=== PATIENT | female | born 1970 | race African-American/Black ===

== ENCOUNTER 2024-02-15 05:56 | Inpatient (IN) | payer OTHER ==
[2024-02-12 13:04] VITALS: BMI 33.8
[2024-02-15] MEDS ORDERED: Ondansetron PF 4 MG/2 ML Vial IVP PRN (06:35)
[2024-02-15] MEDS ORDERED: Promethazine 25 MG TAB PO PRN (06:35)
[2024-02-15] MEDS ORDERED: fentaNYL 50 mcg/mL 1 mL Vial SLOW IVP PRN (06:35)
[2024-02-15] MEDS ORDERED: Acetaminophen 325 MG TAB PO PRN (06:35)
[2024-02-15] MEDS ORDERED: Mag-Al 1200 mg/1200 mg/30 ML UDCUP PO PRN (06:35)
[2024-02-15] MEDS ORDERED: Milk Of Magnesia 30 ML UDCUP PO PRN (06:35)
[2024-02-15] MEDS ORDERED: Phenol 177 ML BOT PO PRN (06:38)
[2024-02-15] MEDS ORDERED: oxyCODONE/Acetaminophen 5 mg/325 mg Tablet PO PRN ×2 (06:38)
[2024-02-15] MEDS ORDERED: Benzocaine/Menthol 1 LOZ LOZ PO PRN (06:38)
[2024-02-15] MEDS ORDERED: tiZANidine HCl 4 MG TAB PO PRN (06:39)
[2024-02-15] MEDS ORDERED: Sodium Chloride 0.9% 1,000 ML IV SCH (06:45)
[2024-02-15] MEDS ORDERED: Lidocaine 1% PF 5 ML VIAL ONE (06:55)
[2024-02-15] MEDS ORDERED: PROPOFOL 0 ML ONE (06:55)
[2024-02-15] MEDS ORDERED: Fentanyl 250 MCG/5 ML VIAL ONE (06:55)
[2024-02-15] MEDS ORDERED: Rocuronium Bromide 10 MG/ML (10ML VIAL) ONE (06:55)
[2024-02-15] MEDS ORDERED: CEFAZOLIN 2 GM VIAL ONE (07:05)
[2024-02-15 07:16] LABS: Hematocrit 36.4 % (36.0-47.0); Hemoglobin 12.6 g/dL (12.0-16.0); Mean Corpuscular HGB CONC 34.6 g/dL (32.0-36.0); Mean Corpuscular Hemoglobin 30.3 pg (27.0-31.0); Mean Corpuscular Volume 87.5 fL (78.0-98.0); Mean Platelet Volume 10.1 fL (7.4-10.4); Platelet Count 298 10x3/uL (130-400); RBC Distribution Width 12.7 % (11.5-14.5); Red Blood Cell (RBC) Count 4.16 mill/uL (4.20-5.40)
[2024-02-15 07:28] LABS: Anion Gap 15 mmol/L (10-20); BUN (Urea Nitrogen) 31 mg/dL (9.8-20.1); Calc. Creatinine Clearance 41 mL/min (70-130); Calcium 9.2 mg/dL (7.8-10.44); Carbon Dioxide 25 mmol/L (22-29); Chloride 100 mmol/L (98-107); Estimated GFR 28; Glucose 181 mg/dL (70-105); Potassium 3.6 mmol/L (3.5-5.1); Sodium 136 mmol/L (136-145)
[2024-02-15] MEDS ORDERED: Pregabalin 75 MG CAP PO SCH (09:00)
[2024-02-15] MEDS ORDERED: CEFAZOLIN 2 GM in Sodium Chloride 0.9% 100 ML IVPB SCH (16:00)
== END 2024-02-15 07:58 | disposition home or self-care (01) | DRG 74 ==
LOC: SURG A 05:56
PROVIDERS: ADMIT Neurological Surgery; ATTEND Neurological Surgery
DX: M54.12 Radiculopathy, cervical region (principal); Z88.5 Allergy status to narcotic agent; Z90.710 Acquired absence of both cervix and uterus; I10 Essential (primary) hypertension; E78.5 Hyperlipidemia, unspecified; G89.4 Chronic pain syndrome; G43.909 Migraine, unspecified, not intractable, without status migrainosus; E11.9 Type 2 diabetes mellitus without complications
CPT/HCPCS: 80048; 85027; J2704; J3010

== ENCOUNTER 2024-02-22 06:30 | Inpatient (IN) | payer OTHER ==
[2024-02-22] MEDS ORDERED: traMADol HCl 50 MG TAB PO PRN (07:08)
[2024-02-22] MEDS ORDERED: Mag-Al 1200 mg/1200 mg/30 ML UDCUP PO PRN (07:08)
[2024-02-22] MEDS ORDERED: Promethazine 25 MG TAB PO PRN (07:08)
[2024-02-22] MEDS ORDERED: HYDROcodone/Acetaminophen 10/325 mg Tablet PO PRN ×2 (07:08)
[2024-02-22] MEDS ORDERED: Acetaminophen 325 MG TAB PO PRN (07:08)
[2024-02-22] MEDS ORDERED: Milk Of Magnesia 30 ML UDCUP PO PRN (07:08)
[2024-02-22] MEDS ORDERED: Ondansetron PF 4 MG/2 ML Vial IVP PRN (07:08)
[2024-02-22] MEDS ORDERED: Benzocaine/Menthol 1 LOZ LOZ PO PRN (07:13)
[2024-02-22] MEDS ORDERED: ALPRAZolam 1 MG TAB PO PRN (07:14)
[2024-02-22] MEDS ORDERED: tiZANidine HCl 4 MG TAB PO PRN (07:17)
[2024-02-22] MEDS ORDERED: Lidocaine 1% PF 5 ML VIAL ONE (07:30)
[2024-02-22] MEDS ORDERED: PHENYLEPHRINE-NS 100 MCG/ML 10 ML SYRINGE ONE (07:30)
[2024-02-22] MEDS ORDERED: Ondansetron PF 4 MG/2 ML Vial ONE (07:30)
[2024-02-22] MEDS ORDERED: Glycopyrrolate 0.2 MG/ML 5 ML SYRINGE ONE (07:30)
[2024-02-22] MEDS ORDERED: Rocuronium Bromide 10 MG/ML (10ML VIAL) ONE (07:30)
[2024-02-22] MEDS ORDERED: Dexamethasone 20 MG/5 ML VIAL ONE (07:30)
[2024-02-22] MEDS ORDERED: fentaNYL PF 100 MCG/2 ML SYRINGE ONE (07:31)
[2024-02-22] MEDS ORDERED: PROPOFOL 20 ML ONE (07:31)
[2024-02-22] MEDS ORDERED: HYDROmorphone 2 MG/ML VIAL ONE ×2 (07:31→10:26)
[2024-02-22] MEDS ORDERED: Midazolam HCl 2 mg/2 ml Vial ONE (07:31)
[2024-02-22] MEDS ORDERED: CEFAZOLIN 2 GM VIAL ONE (07:45)
[2024-02-22] MEDS ORDERED: SUGAMMADEX SODIUM 200 MG/2 ML VIAL ONE ×2 (09:32→09:53)
[2024-02-22] MEDS ORDERED: Labetalol HCl 100 MG/20 ML VIAL ONE (11:16)
[2024-02-22] MEDS ORDERED: Non-Formulary Medication 1 EACH PO PRN (11:22)
[2024-02-22] MEDS ORDERED: Promethazine HCl 25 MG/ML VIAL IM PRN (11:30)
[2024-02-22] MEDS ORDERED: Ondansetron HCl/PF 4 MG/2 ML Vial IVP PRN (11:30)
[2024-02-22] MEDS ORDERED: diphenhydrAMINE 50 MG/ML VIAL ONE (11:53)
[2024-02-22] MEDS: diphenhydrAMINE 50 MG/ML VIAL IVP PRN (11:57)
[2024-02-22] MEDS: Spironolactone 100 MG TAB PO SCH (13:47)
[2024-02-22] MEDS: Pregabalin 75 MG CAP PO SCH (13:48)
[2024-02-22] MEDS: Furosemide 20 MG TAB PO SCH (13:48)
[2024-02-22] MEDS: dilTIAZem CD 180 MG CAP PO SCH (13:48)
[2024-02-22] MEDS ORDERED: Zolpidem Tartrate 5 MG TAB PO PRN (13:54)
[2024-02-22 15:28] VITALS: BMI 34.7
[2024-02-22] MEDS: traMADol HCl 50 MG TAB PO PRN (15:44)
[2024-02-22] MEDS: Sodium Chloride 0.9% 1,000 ML IV SCH (15:48)
[2024-02-22] MEDS: CEFAZOLIN 2 GM in Sodium Chloride 0.9% 100 ML IVPB SCH (16:39)
[2024-02-22] MEDS: Phenol 177 ML BOT PO PRN (17:14)
[2024-02-22] MEDS: fentaNYL 50 mcg/mL 1 mL Vial SLOW IVP PRN (18:23)
[2024-02-22] MEDS ORDERED: oxyCODONE/Acetaminophen 5 mg/325 mg Tablet PO PRN (20:35)
[2024-02-22] MEDS ORDERED: Lisinopril 20 MG TAB PO SCH (21:00)
[2024-02-22] MEDS ORDERED: CEFAZOLIN 1 GM VIAL SLOW IVP SCH (22:00)
[2024-02-23] MEDS: CEFAZOLIN 2 GM in Sodium Chloride 0.9% 100 ML IVPB SCH (01:31)
[2024-02-23] MEDS: oxyCODONE/Acetaminophen 5 mg/325 mg Tablet PO PRN (02:30)
[2024-02-23] MEDS: Dexamethasone 4 mg/ml Vial SLOW IVP SCH (08:47)
[2024-02-23] MEDS: Losartan 25 MG TAB PO SCH (08:48)
[2024-02-23] MEDS: Chlorthalidone 25 MG TAB PO SCH (08:50)
[2024-02-23 09:41] VITALS: BP 164/97; TEMP 98.2
[2024-02-24] MEDS ORDERED: FLU (Fluarix Triv) TS24-25(6MOS UP)/PF 45 MCG/0.5 ML Syringe IM ONE (09:00)
== END 2024-02-23 11:55 | disposition home or self-care (01) | DRG 473 ==
LOC: SURG A 06:39
PROVIDERS: ADMIT Neurological Surgery; ATTEND Neurological Surgery
PROC: 0RG20A0 Fusion of 2 or more Cervical Vertebral Joints with Interbody Fusion Device, Anterior Approach, Anterior Column, Open Approach (ICD-10-PCS; principal; 2024-02-22)
PROC: 0RT30ZZ Resection of Cervical Vertebral Disc, Open Approach (ICD-10-PCS; 2024-02-22)
PROC: 3E02340 Introduction of Influenza Vaccine into Muscle, Percutaneous Approach (ICD-10-PCS; 2024-02-23)
DX: M48.02 Spinal stenosis, cervical region (principal); M54.12 Radiculopathy, cervical region; R13.10 Dysphagia, unspecified; I10 Essential (primary) hypertension; E78.5 Hyperlipidemia, unspecified; G43.909 Migraine, unspecified, not intractable, without status migrainosus; E11.9 Type 2 diabetes mellitus without complications; G89.4 Chronic pain syndrome; Z88.5 Allergy status to narcotic agent; Z90.710 Acquired absence of both cervix and uterus; Z23 Encounter for immunization
CPT/HCPCS: C1713; J1100; J1200; J2250; J2405; J2704; J3010; J7030